=== PATIENT | female | born 1980 | race Caucasian/White ===

== ENCOUNTER → 2016-09-09 | Outpatient (CLI) | payer OTHER ==
[2016-09-09 12:48] LABS: HEMOGLOBIN 11.3 gm/dl (12.3-15.3); RED BLOOD COUNT 3.75 M/UL (4.00-5.10); WHITE BLOOD COUNT 13.5 K/UL (4.5-11.0)
== END ==
LOC: GENOP 12:19
PROVIDERS: Obstetrics & Gynecology
DX: O82 Encounter for cesarean delivery without indication (principal)
CPT/HCPCS: 36415; 81001; 85025

== ENCOUNTER 2016-09-10 05:47 | Inpatient (IN) | payer OTHER ==
[~2016-09-10] VITALS: Ht 165.1 cm; Wt 100.2 kg
[2016-09-11 02:45] LABS: HEMOGLOBIN 8.4 gm/dl (12.3-15.3)
== END 2016-09-12 14:52 | disposition home or self-care (01) | DRG 766 ==
LOC: OB 05:47
PROVIDERS: ADMIT Obstetrics & Gynecology
PROC: 10D00Z1 Extraction of Products of Conception, Low, Open Approach (ICD-10-PCS; principal; 2016-09-10 07:30)
DX: O34.211 Maternal care for low transverse scar from previous cesarean delivery (principal); Z3A.39 39 weeks gestation of pregnancy; Z37.0 Single live birth; O99.824 Streptococcus B carrier state complicating childbirth; O99.334 Smoking (tobacco) complicating childbirth; F17.210 Nicotine dependence, cigarettes, uncomplicated; O99.344 Other mental disorders complicating childbirth; F32.9 Major depressive disorder, single episode, unspecified
CPT/HCPCS: 36415; 82800; 85014; 85018; 90715; C9113; J0690; J1200; J2274; J2300; J2405; J2590; J2765; J3010; J7120

== ENCOUNTER → 2022-01-31 | Outpatient (CLI) | payer OTHER ==
[~2022-01-31] MED LIST: COLACE 100MG C100 MG PO; FERROUS SULFAT325 M2 PO; IBUPROFEN600 MG PO; LORTAB 5-325 M1 EACH PO; PRILOSEC10 M1 PO; ZANTAC150 MG PO
== END ==
LOC: MAMO 01-29 10:00
DX: R92.8 Other abnormal and inconclusive findings on diagnostic imaging of breast (principal); N63.0 Unspecified lump in unspecified breast
CPT/HCPCS: 76641; 77066; G0279